=== PATIENT | female | born 1990 | race Caucasian/White ===

== ENCOUNTER 2017-02-06 11:28 | Inpatient (IN) | payer MEDICAID ==
[~2017-02-06] VITALS: Ht 170.2 cm; Wt 147.0 kg
[~2017-02-06 11:28] MED LIST: IBUP-1547 PO; PERCT PO
[2017-02-06 11:46] LABS: BASOPHILS % (AUTO) 0.1 % (0.0-2.0); EOSINOPHILS % (AUTO) 1.4 % (1.0-6.0); HEMATOCRIT 37.5 % (36-46); HEMOGLOBIN 12.4 g/dL (12.0-16.0); LYMPHOCYTES % (AUTO) 24.4 % (22.0-44.0); MEAN CORPUSCULAR HEMOGLOBIN 27.1 pg (26.0-34.0); MEAN CORPUSCULAR HGB CONC 33.1 G/dL (31.0-37.0); MEAN CORPUSCULAR VOLUME 82 fL (80-100); MONOCYTES # (AUTO) 0.4 K/uL (0.1-1.0); MONOCYTES % (AUTO) 5.4 % (2.0-9.0); NEUTROPHILS # (AUTO) 5.6 K/uL (1.8-7.7); NEUTROPHILS % (AUTO) 68.7 % (40.0-70.0); PLATELET COUNT (AUTO) 293 K/uL (150-450); RED BLOOD CELL COUNT(AUTO) 4.57 MIL/uL (4.00-5.20); RED CELL DISTRIBUTION WIDTH 14.7 % (11.5-14.5); WHITE BLOOD COUNT (AUTO) 8.1 K/uL (4.5-11.0)
[2017-02-06] MEDS ORDERED: LORA0.5T2 PO (11:49)
[2017-02-06] MEDS ORDERED: BUPR100 PO (11:49)
[2017-02-06 11:52] LABS: ANION GAP 11 mmol/L (8-16); CALCIUM, TOTAL 9.1 mg/dL (8.8-10.5); CARBON DIOXIDE 26 mmol/L (22-29); CHLORIDE 103 mmol/L (98-107); CREATININE 0.82 mg/dL (0.60-1.30); GLOMERULAR FILTR. RATE CALC > 60 mL/min (>60); POTASSIUM 4.2 mmol/L (3.5-5.1); SODIUM SERUM 140 mmol/L (136-145); UREA NITROGEN, BLOOD 14 mg/dL (7-18)
[2017-02-06 12:06] LABS: ALANINE AMINOTRANSFERASE 35 U/L (12-78); ALBUMIN 3.5 g/dL (3.4-5.0); ASPARTATE AMINOTRANSFERASE 26 U/L (15-37); BILIRUBIN,TOTAL 0.5 mg/dL (0.1-1.0); TOTAL PROTEIN, SERUM 8.1 g/dL (6.4-8.2)
[2017-02-06 12:11] LABS: SALICYLATE < 2.8 mg/dL (2.8-20.0)
[2017-02-06 12:34] LABS: ACETAMINOPHEN < 2 mcg/mL (10-30)
[2017-02-06] MEDS ORDERED: HALOPERIDOL LACTATE 5 MG/ML VIAL IM ONE (13:15)
[2017-02-06] MEDS ORDERED: LORazepam 2 MG/ML VIAL IM ONE (13:15)
[2017-02-06] MEDS ORDERED: DiphenhydrAMINE HCL 50 MG/ML VIAL IM ONE (13:15)
[2017-02-06] MEDS ORDERED: ZOLPIDEM TARTRATE 10 MG TABLET PO PRN (14:45)
[2017-02-06] MEDS ORDERED: HALOPERIDOL 5 MG TABLET PO PRN (14:45)
[2017-02-06 17:00] VITALS: BP 110/72
[2017-02-07 00:02] VITALS: BP 104/69
[2017-02-07 08:39] VITALS: BP 132/64
[2017-02-07] MEDS ORDERED: BUPR150SR PO (11:30)
[2017-02-07] MEDS: BuPROPion HCL XL 150 MG ER TABLET PO SCH (12:41)
[2017-02-07 12:42] VITALS: BP 125/63
[2017-02-07] MEDS: ACETAMINOPHEN 325 MG TABLET PO PRN ×2 (12:42→21:44)
[2017-02-07 13:42] VITALS: BP 128/70
[2017-02-07 16:12] VITALS: BP 117/80
[2017-02-07] MEDS ORDERED: METOCLOPRAMIDE HCL 5 MG TABLET PO PRN (16:30)
[2017-02-07 21:43] VITALS: BP 126/81
[2017-02-07] MEDS: LORazepam 2 MG TABLET PO PRN (21:43)
[2017-02-07 21:47] LABS: GLUCOSE,POINT OF CARE 105 MG/DL (70-110)
[2017-02-08 05:56] VITALS: BP 106/65
[2017-02-08 08:30] VITALS: BP 108/73
[2017-02-08] MEDS: BuPROPion HCL XL 150 MG ER TABLET PO SCH (08:49)
[2017-02-08] MEDS: LORazepam 2 MG TABLET PO PRN ×3 (09:12→23:41)
[2017-02-08] MEDS ORDERED: LOPERAMIDE HCL 2 MG CAPSULE PO PRN (13:15)
[2017-02-08 16:10] VITALS: BP 137/73
[2017-02-09] MEDS ORDERED: BUPR-93 PO (01:37)
[2017-02-09 06:12] VITALS: BP 137/67
== END 2017-02-09 07:05 | disposition home or self-care (01) | DRG 751 ==
LOC: EMS 11:29 → B2S 15:35
PROVIDERS: ADMIT Psychiatry & Neurology Child & Adolescent Psychiatry; ATTEND Psychiatry & Neurology Child & Adolescent Psychiatry
DX: F32.2 Major depressive disorder, single episode, severe without psychotic features (principal); F41.9 Anxiety disorder, unspecified; F43.10 Post-traumatic stress disorder, unspecified; K52.9 Noninfective gastroenteritis and colitis, unspecified; J45.909 Unspecified asthma, uncomplicated; X58.XXXA Exposure to other specified factors, initial encounter; T42.4X1A Poisoning by benzodiazepines, accidental (unintentional), initial encounter; Y92.89 Other specified places as the place of occurrence of the external cause; Z78.1 Physical restraint status; Y93.89 Activity, other specified; Y99.8 Other external cause status
CPT/HCPCS: 82962; 96372; 99285; G0480; G0481; J1200; J1630; J2060

== ENCOUNTER 2017-02-07 22:54 | Emergency (ER) | payer MEDICAID ==
[~2017-02-07] VITALS: Ht 170.2 cm; Wt 146.8 kg
[~2017-02-07 22:54] MED LIST changes: +BUPR100 PO; +BUPR150SR PO; +LORA0.5T2 PO
[2017-02-07 23:55] LABS: BASOPHILS # (AUTO) 0.02 K/uL (0.00-0.20); BASOPHILS % (AUTO) 0.2 % (0.0-2.0); EOSINOPHILS # (AUTO) 0.01 K/uL (0.00-0.70); EOSINOPHILS % (AUTO) 0.07 % (1.0-6.0); HEMATOCRIT 36.3 % (36-46); HEMOGLOBIN 12.1 g/dL (12.0-16.0); LYMPHOCYTES # (AUTO) 0.9 K/uL (1.0-4.8); LYMPHOCYTES % (AUTO) 7.7 % (22.0-44.0); MEAN CORPUSCULAR HEMOGLOBIN 27.3 pg (26.0-34.0); MEAN CORPUSCULAR HGB CONC 33.3 G/dL (31.0-37.0); MEAN CORPUSCULAR VOLUME 82 fL (80-100); MONOCYTES # (AUTO) 0.4 K/uL (0.1-1.0); MONOCYTES % (AUTO) 2.9 % (2.0-9.0); NEUTROPHILS # (AUTO) 10.6 K/uL (1.8-7.7); PLATELET COUNT (AUTO) 241 K/uL (150-450); RED BLOOD CELL COUNT(AUTO) 4.44 MIL/uL (4.00-5.20); RED CELL DISTRIBUTION WIDTH 15.6 % (11.5-14.5); WHITE BLOOD COUNT (AUTO) 11.9 K/uL (4.5-11.0)
[2017-02-07 23:56] LABS: NEUTROPHILS % (AUTO) 89.1 % (40.0-70.0)
[2017-02-08] MEDS ORDERED: ACETAMINOPHEN 500 MG TABLET PO ONE
[2017-02-08 00:04] LABS: ANION GAP 12 mmol/L (8-16); CALCIUM, TOTAL 8.9 mg/dL (8.8-10.5); CARBON DIOXIDE 25 mmol/L (22-29); CHLORIDE 98 mmol/L (98-107); CREATININE 0.99 mg/dL (0.60-1.30); GLOMERULAR FILTR. RATE CALC > 60 mL/min (>60); POTASSIUM 3.5 mmol/L (3.5-5.1); SODIUM SERUM 135 mmol/L (136-145); UREA NITROGEN, BLOOD 14 mg/dL (7-18)
[2017-02-08 00:16] LABS: LACTIC ACID 0.8 mmol/L (0.4-2.0)
[2017-02-08 00:29] LABS: ALANINE AMINOTRANSFERASE 33 U/L (12-78); ALBUMIN 3.5 g/dL (3.4-5.0); ASPARTATE AMINOTRANSFERASE 23 U/L (15-37); BILIRUBIN,TOTAL 0.6 mg/dL (0.1-1.0); CREATINE KINASE, TOTAL 173 U/L (26-192); TOTAL PROTEIN, SERUM 7.7 g/dL (6.4-8.2)
[2017-02-08 00:31] LABS: CREATINE KINASE MB < 0.5 ng/mL (0-5)
[2017-02-08 03:11] LABS: APPEARANCE,URINE CLOUDY (CLEAR); GLUCOSE, URINE (UA) NEGATIVE (NEGATIVE); KETONES,URINE NEGATIVE (NEGATIVE); LEUKOCYTE ESTERASE ,URINE TRACE (NEGATIVE); OCCULT BLOOD,URINE NEGATIVE (NEGATIVE); PH,URINE 5.5 (5.0-8.0); PROTEIN,URINE NEGATIVE (NEGATIVE)
[2017-02-08 03:25] LABS: RBC,URINE 0-2 /HPF (0-2); SQUAMOUS EPITHELIAL CELL,UR Rare /LPF (None Seen)
[2017-02-08] MEDS ORDERED: SODIUM CHLORIDE 0.9% 1,000 ML IV ONE ×3 (03:30)
[2017-02-08 04:20] VITALS: BP 127/85
[2017-02-08] MEDS ORDERED: LOPERAMIDE HCL 2 MG CAPSULE PO ONE (05:15)
[2017-02-09] MEDS ORDERED: BUPR-93 PO (01:37)
== END 2017-02-08 05:24 | disposition home or self-care (01) ==
LOC: EMS 22:57
DX: R00.0 Tachycardia, unspecified (principal); J45.909 Unspecified asthma, uncomplicated; F41.9 Anxiety disorder, unspecified
CPT/HCPCS: 83605; 93005; 96360; 96361; 99285; J7030